=== PATIENT | male | born 1990 | race Caucasian/White ===

== ENCOUNTER 2019-06-27 18:48 | Emergency (ER) | payer BC ==
[2019-06-27 19:17] VITALS: BP 125/83
--- NOTE | 2019-06-27 19:36 | UC ---
Respiratory Complaint HPI - HPI Summary HPI Summary: 28-year-old male presents with complaints of productive cough and shortness of breath. States about 3 weeks ago developed some cold-like symptoms including nasal congestion, runny nose, and cough. States symptoms improved after out a week however the cough persisted. Approximately 5 or 6 days ago his cough began to worsen and became productive for a green sputum. Associated with some mild shortness of breath and right anterior chest wall pain especially with cough. Denies fever, chills, nasal congestion, ear pain, sore throat, palpitations, weakness, dizziness, diaphoresis, abdominal pain, nausea, or vomiting. - History of Current Complaint Chief Complaint: UCRespiratory Stated Complaint: COUGH, AND CHEST CONGESTION Time Seen by Provider: 06/27/19 19:25 Hx Obtained From: Patient Pain Intensity: 4 - Allergies/Home Medications Allergies/Adverse Reactions: Allergies Allergy/AdvReac Type Severity Reaction Status Date / Time No Known Allergies Allergy Verified 06/27/19 19:18 Home Medications: Home Medications Lisinopril TAB* [Prinivil TAB*] 20 mg PO DAILY 06/27/19 [History Confirmed 06/27] Metoprolol Succinate XL TAB* [Toprol XL TAB*] 25 mg PO DAILY 06/27/19 [History Confirmed 06/27/19] PMH/Surg Hx/FS Hx/Imm Hx Cardiovascular History: Hypertension - Surgical History Surgical History: Yes Surgery Procedure, Year, and Place: T&A - Family History Known Family History: Positive: Non-Contributory - Social History Occupation: Employed Full-time Lives: With Family Alcohol Use: Weekly Substance Use Type: None Smoking Status (MU): Current Some Day Smoker Review of Systems All Other Systems Reviewed And Are Negative: Yes Constitutional: Negative: Fever, Chills Skin: Negative: Rash Eyes: Negative: Drainage, Eye Redness ENT: Negative: Sore Throat, Ear Ache, Nasal Discharge, Sinus Congestion, Sinus Pain/Tenderness Respiratory: Positive: Shortness Of Breath, Cough Cardiovascular: Positive: Chest Pain - chest wall pain. Negative: Palpitations Gastrointestinal: Negative: Abdominal Pain, Vomiting, Diarrhea, Nausea Genitourinary: Positive: Negative Musculoskeletal: Positive: Negative Neurological: Positive: Negative Is Patient Immunocompromised?: No Physical Exam - Summary Physical Exam Summary: GENERAL APPEARANCE: Well developed, well nourished, alert and cooperative, and appears to be in no acute distress. EYES: Conjunctiva clear. No drainage. PERRL, EOM intact. Vision is grossly intact. EARS: External auditory canals and tympanic membranes clear, hearing grossly intact. NOSE: No nasal discharge. THROAT: Pharynx normal No tonsilar inflammation, swelling, exudate, or lesions. Uvula midline. Oral cavity normal. Teeth and gingiva in good general condition. NECK: Neck supple, non-tender without lymphadenopathy. CARDIAC: Normal S1 and S2. No S3, S4 or murmurs. Rhythm is regular. There is no peripheral edema, cyanosis or pallor. Extremities are warm and well perfused. Capillary refill is less than 2 seconds. Peripheral pulses intact. LUNGS: Clear to auscultation without rales, rhonchi, wheezing or diminished breath sounds. Loose non-productive cough. ABDOMEN: Positive bowel sounds. Soft, nondistended, nontender. No guarding or rebound. No masses or hepatosplenomegally. MUSKULOSKELETAL: ROM intact to all extremities. No joint erythema or tenderness. Normal muscular development. Normal gait. SKIN: Skin normal color, texture and turgor with no lesions or eruptions. Triage Information Reviewed: Yes Vital Signs: Initial Vital Signs Temp 99.3 F 06/27/19 19:12 Pulse 71 06/27/19 19:12 Resp 16 06/27/19 19:12 BP 125/83 06/27/19 19:12 Pulse Ox 98 06/27/19 19:12 Vital Signs Reviewed: Yes Respiratory Course/Dx - Course Course Of Treatment: 28-year-old male presents with complaints of productive cough and shortness of breath. States about 3 weeks ago developed some cold-like symptoms including nasal congestion, runny nose, and cough. States symptoms improved after out a week however the cough persisted. Approximately 5 or 6 days ago his cough began to worsen and became productive for a green sputum. Associated with some mild shortness of breath and right anterior chest wall pain especially with cough. Denies fever, chills, nasal congestion, ear pain, sore throat, palpitations, weakness, dizziness, diaphoresis, abdominal pain, nausea, or vomiting. Afebrile. Vital signs stable. Patient had clear bilateral breath sounds with a loose nonproductive cough and otherwise unremarkable exam. Discussed with the patient I suspect that he has an acute bronchitis however with his history of improvement in been worsening of symptoms as well as the duration of his symptoms I do have some concern that there may be a secondary bacterial infection and therefore I'm recommending he started on antibiotics to treat for the infection. He is to take azithromycin 2 tabs today then 1 tab daily for the next 4 days. Also recommending Tessalon Perles 1 capsule every 8 hours as needed for cough as well as an albuterol inhaler 2 puffs every 4-6 hours as needed for any shortness of breath. He is to follow-up with his primary care provider in one week for recheck of his symptoms especially if there is no improvement. Anticipatory guidance and warning symptoms were reviewed with the patient. Verbalizes understanding and agrees with plan of care. - Differential Dx/Diagnosis Differential Diagnosis/HQI/PQRI: Bronchitis, Lower Resp Infection, Other - URI Provider Diagnosis: Acute bronchitis Discharge - Sign-Out/Discharge Documenting (check all that apply): Patient Departure All imaging exams completed and their final reports reviewed: No Studies - Discharge Plan Condition: Stable Disposition: HOME Prescriptions: Albuterol HFA INHALER* [Ventolin HFA Inhaler*] 2 puff INH Q4H PRN #1 mdi PRN Reason: Shortness Of Breath Azithromyxin JESICA (NF) [Z-Jesica (Zithromax) 250 mg tabs #6] 2 tab PO .TODAY, THEN 1 DAILY #6 tab Benzonatate CAP* [Tessalon 100 MG CAP*] 100 mg PO TID PRN #21 cap PRN Reason: Cough Patient Education Materials: Acute Bronchitis (ED) Referrals: Temitope Mosley MD [Primary Care Provider] - 7 Days Additional Instructions: Your history and exam are consistent with an acute bronchitis. Considering the duration and worsening of her symptoms I'm concerned that there may be a secondary bacterial infection therefore we'll start you on antibiotics to treat. Start azithromycin 2 tabs today then 1 tab daily for the next 4 days. Use albuterol inhaler 2 puffs every 4-6 hours as needed for any shortness of breath. Take Tessalon Perles 1 cap every 8 hours as needed for cough. Be aware that the cough with bronchitis may persist for 2-3 weeks even if other symptoms have improved. Get plenty of rest. Drink plenty of fluids. Run a cool mist humidifer in your room at night. Take over the counter acetaminophen (Tylenol) or ibuprofen (Advil, Motrin) according to directions as needed for pain or fever. Follow up with your primary care provider in 7 days for recheck of symptoms especially if symptoms are not improving. Seek immediate medical attention in the emergency room if you have fever greater than 100.5 F despite taking acetaminophen or ibuprofen, have severe chest pain, difficulty breathing, or have any worsening of symptoms. - Billing Disposition and Condition Condition: STABLE Disposition: Home
== END 2019-06-27 19:55 | disposition home or self-care (01) ==
LOC: UCEAST 18:48
DX: J20.9 Acute bronchitis, unspecified (principal); I10 Essential (primary) hypertension
CPT/HCPCS: 99202; G0463